=== PATIENT | male | born 1970 | race Caucasian/White ===

== ENCOUNTER 2017-06-16 15:31 | Emergency (ER) | payer SELFPAY ==
[~2017-06-16] VITALS: Ht 165.1 cm; Wt 75.0 kg
[~2017-06-16 15:31] MED LIST: CARV6 PO; CLON0.2T PO
[2017-06-16] MEDS ORDERED: CloNIDine HCL 0.1 MG TABLET PO ONE (16:30)
[2017-06-16 16:36] VITALS: BP 111/97
== END 2017-06-16 16:38 | disposition home or self-care (01) ==
LOC: EMS 15:32
DX: I10 Essential (primary) hypertension (principal); F12.90 Cannabis use, unspecified, uncomplicated; F17.210 Nicotine dependence, cigarettes, uncomplicated; Z02.89 Encounter for other administrative examinations
CPT/HCPCS: 99283